=== PATIENT | female | born 1945 | race Caucasian/White ===

== ENCOUNTER → 2016-08-02 | Outpatient (CLI) | payer BC, OTHER ==
[~2016-08-02] VITALS: Ht 157.5 cm; Wt 59.0 kg
[~2016-08-02] MED LIST: ALLEGRA ALLERG180 MG PO; CELEBREX 200 M200 M1 PO; FLEXERIL PO; LIALDA1.2 GM PO; MINOCIN100 MG PO; MULTI VITAMIN1 EACH PO; PAMELOR50 MG PO; PROBIOTIC1 EAC1 PO; TOPROL XL100 MG PO; VITAMIN D3 PO
--- NOTE | ~2016-08-02 | HPC ---
[facility] [address] [place] [address] PAIN MANAGEMENT CONSULTATION Name: CISCO PAVON Room #: REG [facility] Alex#: [id number] Admission: 08/02/16 Attend Phys: Lux Potter DO Discharge: Date of : 45 Report #: [id number] THIS REPORT FOR: //name// CC: BARNEY Potter DATE OF SERVICE: 08/02/2016 HISTORY OF PRESENT ILLNESS: The patient is a very pleasant 70-year-old female seen in consultation at the request of Dr. Forrest Ghtora for evaluation of pain, right flank radiating to the groin. The patient has a long history, back in 1987, she had her first back surgery with Dr. Vasile Barron, I believe this was a right L5-S1 hemilaminectomy, was revised again later that year. Had ongoing pain issues, ultimately had an anterior-posterior fusion by Dr. Manuel Turcios, this was believed to be L4, L5 and S1. She did have an allogenic bone graft from the hip. Had suffered with ongoing pain, had another microdiscectomy above the fusion later in 1998 believed to be L3-L4. Ultimately in [place] she had another procedure at L2-L3 and L3-L4. I believe this was a posterior spinous process fixator. Again, the patient comes with a paucity of records regarding these back procedures. She subsequently had a [employer] spinal cord stimulator implanted in 2004. She had some efficacy with right radicular leg pain with the stimulator, though ultimately the stimulator about 3 years ago, and she has not had it revised. 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 Currently, does have a fairly large arthroplasty with a stem about mcfp up the femur and the inferior tibial piece was stemmed fairly deep into the tibia as well. One or two of the surgeries were complicated with a fracture of the femur. She has ultimately been maintained on a chronic antibiotic for prophylaxis (minocycline). Currently, the patient notes pain in the right flank and groin that has been present since May without antecedent trauma or overuse. Seems to be exacerbated with weightbearing or lifting her right leg. She has subjective weakness and paresthesia in the leg, but denies saddle anesthesia or bowel or bladder continence changes. Notes the pain rates quite high, anywhere from 8-10 on a 0-10 visual analog scale, described as steady, constant, burning, aching and pulling. REVIEW OF SYSTEMS: A complete review of systems is attached to the chart and gone over with the patient. [address] [address] PAIN MANAGEMENT CONSULTATION Name: LIBRADOCISCO AMBROSIO Room #: REG [facility] Alex#: [id number] Admission: 08/02/16 Attend Phys: Lux Potter DO Discharge: Date of : 45 Report #: [id number] She is , seen in the company of her who is supportive. A history of paroxysmal atrial tachycardia, currently on Toprol. Postmenopausal, uses a female hormone replacement. Some chronic colon issues for which she takes Lialda. Pamelor for some chronic insomnia. Celebrex 200 mg daily, Flexeril 10 mg at bedtime for chronic pain concerns. As noted earlier in the chief complaint, does take minocycline for chronic supression, status post multiple right knee arthroplasties and subsequent MSSA infection and sepsis. The patient does not work outside the home. Pain impact score averages fairly high about 40/70. PHYSICAL EXAMINATION: VITAL SIGNS: Reveals a 5 feet 2 inches, 130-pound female, BMI is 23.8 kg/m2. Blood pressure 153/80, pulse 78 and respirations 16. HEENT: Cranial nerves 2-12 are grossly intact. Pupils are equal and reactive to light and accommodation. Extraocular muscles are intact. NECK: Cervical range of motion is full. Thyroid is unremarkable. Upper extremity strength is symmetric. HEART: Regular and rhythmical with a subtle 1-2/6 systolic ejection murmur. LUNGS: Clear to auscultation. ABDOMEN: Benign. MUSCULOSKELETAL: Rises from chair using the armrests. There is a cane in her left hand, has an antalgic gait. Lumbar flexion is limited to 70 degrees. Tender from about L4 down to the sacrum. Right hip flexion strength is dramatically limited 2/5. Lower extremity extension on the right is 3/5 dorsiflexion is 2-3/5, plantar flexion is 3-4/5, left leg is much stronger about 4-5 to all muscle groups tested. Straight leg raise is negative, though right side does exacerbate some back pain. No true neural tensioning symptoms are noted. Patellar reflexes are absent symmetrically. Achilles reflex 0-1/4 and symmetric. Renetta test is negative. Diffuse tenderness across the low back. No discrete trigger points are noted. DATA: Diagnostic studies primarily aimed at ruling out right renal lithiasis, 07/25/2016, urinalysis is unremarkable. White count is within normal limits. Small eGFR is robust at 90.7. CT of the abdomen from 07/25/2016 notes no renal lithiasis or hydronephrosis. There is incidental mention made of lumbar spine hardware. ASSESSMENT: Symptomatic lumbar radiculopathy in a right L1-L2 pattern. RECOMMENDATIONS: I believe the patient will benefit from a right L1-L2 transforaminal epidural injection under fluoroscopy. We did discuss risks and benefits including the usual concerns for spinal cord trauma and increasing pain. Specifically from a spine angle, concerned about steroids decreasing immune response and exacerbating chronic underlying infection in the right knee, though the patient notes she has been followed diligently with her infectious [facility] [address] [place] [address] PAIN MANAGEMENT CONSULTATION Name: CISCO PAVON AMBROSIO Room #: REG [facility] Alex#: [id number] Admission: 08/02/16 Attend Phys: Lux Potter DO Discharge: Date of : 45 Report #: [id number] disease physician who notes her ESR has been quite low. If injection does not afford adequate relief, we would like to see a CT myelogram of the lumbar spine. MRI is contraindicated due to the spinal cord stimulator implant. Would, however, only consider a CT myelogram if the patient was open to surgery if pathology was noted. Thank your for allowing me to participate in the patient's care. We will seek authorization for a right L1-L2 transforaminal epidural injection under fluoroscopy. In the interim, we will have the patient query her infectious disease physician regarding his thoughts on steroid injection. If he acquiesces, I will be happy to move forward with interventional therapy as noted above. Again, thank you for allowing me to participate in the patient's care. I will keep you abreast of her progress. <ELECTRONICALLY SIGNED> By: Lux Potter DO 08/03/16 1308 [id number] Lux Potter DO /nt
[2016-08-02 08:51] VITALS: BP 153/80
== END ==
LOC: PAIN 07:16
DX: M54.16 Radiculopathy, lumbar region (principal); I47.1 Supraventricular tachycardia

== ENCOUNTER → 2016-08-09 | Outpatient (CLI) | payer BC, OTHER ==
[~2016-08-09] VITALS: Ht 157.5 cm; Wt 59.9 kg
--- NOTE | ~2016-08-09 | HPC ---
[facility] [place] [address] PAIN MANAGEMENT CONSULTATION Name: CISCO PAVON Room #: REG [facility] Alex#: [id number] Admission: 08/09/16 Attend Phys: Lux Potter DO Discharge: Date of : 45 Report #: [id number] THIS REPORT FOR: //name// CC: Zafar Potter DATE OF SERVICE: 08/09/2016 The patient is a pleasant 70-year-old female seen in consultation 08/02/2016 diagnosed with symptomatic lumbar radiculopathy status post decompressive laminectomy. Had right upper lumbar radicular symptoms. We talked about proceeding with a right L1-L2 transforaminal epidural injection today. I asked her to consult her Infectious Disease doctor. She had had chronic infections on that total knee arthroplasty and is on a suppressive antibiotic. Her orthopedist said that he was fine with her getting a steroid injection. The patient was taken to the fluoroscopy suite today. I did image her back. She came to us with a paucity of medical records. She has had anterior interbody fusions at L5-S1 and L4-L5. She has had pedicle screws bilateral at L2, L3 and L4. She does have a spinal cord stimulator which appears to be entering the epidural space at L2-L3. The generator is in the left gluteal pocket. PROCEDURE: Right L1-L2 transforaminal epidural injection under fluoroscopy. PROCEDURE NOTE: After both written and informed consent was obtained including risk of spinal cord damage, infection, increased pain and paralysis, the patient agreed to proceed. The patient was taken to the fluoroscopy suite, placed in a prone position with appropriate abdominal bolstering. After sterile prep with ChloraPrep and sterile drape, a skin wheal with 1% Xylocaine was raised. A 22 gauge 4-1/2 inch epidural Tuohy needle was inserted. From an oblique approach into the posterior-superior aspect of the right L1-L2 neural foramen with continuous pressure on the glass syringe plunger for loss of resistance. Glass syringe was filled with 2 cc of 0.1 Xylocaine. The glass loss of resistance syringe was removed. A low volume extension tubing was connected, negative aspiration was accomplished for cerebrospinal fluid or blood. 1 mL of Omnipaque was injected which showed spread both within the epidural space and laterally along the nerve root. This was followed with 80 mg of triamcinolone plus 1 mL of 1.5% preservative-free Xylocaine. Needle was partially withdrawn, 0.5 mL of Xylocaine was injected to clear the needle and the needle was removed. The area was cleansed, band-aid was applied. The patient was allowed to ambulate to the recovery room, discharged in good and stable condition. <ELECTRONICALLY SIGNED> By: Lux Potter DO 08/10/16 0837 [id number] 1038 Lux Potter DO /nt
[2016-08-09 08:27] VITALS: BP 136/81
== END | disposition home or self-care (01) ==
LOC: PAIN 07:09
DX: M54.16 Radiculopathy, lumbar region (principal)

== ENCOUNTER → 2016-09-06 | Outpatient (CLI) | payer OTHER, MEDICARE ==
[~2016-09-06] VITALS: Ht 157.5 cm; Wt 59.0 kg
--- NOTE | ~2016-09-06 | HPC ---
[facility] [place] [address] PAIN MANAGEMENT CONSULTATION Name: CISCO PAVON Room #: REG [facility] TraeJacques#: [id number] Admission: 09/06/16 Attend Phys: Lux Potter DO Discharge: Date of : 45 Report #: [id number] THIS REPORT FOR: //name// CC: Zafar Potter DATE OF SERVICE: 09/06/2016 The patient is a 70-year-old female last seen in pain clinic 08/09/2016. We did a right L1-L2 transforaminal epidural injection at that time. She has extensive fusion, posterior fusion at L2 through L4, anterior interbody fusion L4-L5 and L5-S1. She has a spinal cord stimulator in place. She had had significant problems with MRSA infection in the right knee. She returns to pain clinic today noting the injection afforded dramatic relief. Her right radicular pain has essentially gone. She is very pleased with this ongoing relief, which she states is 80% and ongoing. She does have a little mid back pain. She is unable to do gardening all weekend. She rates pain as 6 on a 0-10 visual analog scale. PHYSICAL EXAMINATION: Does show some tenderness at the superior aspect of the fusion. I suspect she does have some L1-L2 facet mediated pain here. Lumbar radicular symptoms are fairly nominal. A well-healed extensive scar in the right leg compatible with multiple problems from that right knee surgery, which was secondarily infected. The patient rises from chair using the armrest. Gait is modestly antalgic, though she is walking more upright, a little diffuse tenderness across the mid back area again compatible with L1-L2 mediated facet pain. ASSESSMENT: Lumbosacral spondylosis L1-L2 in a patient status post lumbar decompressive laminectomy with ongoing neuropathic pain. RECOMMENDATION: Discussion with the patient today about therapeutic options. I told her we can proceed with bilateral L1-L2 facet joint injections if back pain starts to interfere with function. We can repeat the right L1-L2 transforaminal epidural injection if radicular symptoms become problematic again. However, given her prior significant MRSA infection and ongoing antibiotic suppression, we will try and expose her to the least amount of steroid we can. We will see her simply on an as needed basis. Discharged in good and stable condition today. <ELECTRONICALLY SIGNED> By: Lux Potter DO 09/07/16 0948 [id number] Lux Potter DO /nt
[2016-09-06 10:37] VITALS: BP 131/68
== END | disposition home or self-care (01) ==
LOC: PAIN 06:56
DX: M43.26 Fusion of spine, lumbar region (principal); M47.897 Other spondylosis, lumbosacral region; G62.9 Polyneuropathy, unspecified

== ENCOUNTER → 2021-02-07 | Outpatient (CLI) | payer OTHER, MEDICARE | LOC: SJCVCIMAG 14:29 | PROVIDERS: ATTEND Internal Medicine | DX: I08.3 Combined rheumatic disorders of mitral, aortic and tricuspid valves (principal); R94.31 Abnormal electrocardiogram [ECG] [EKG] ==

== ENCOUNTER → 2021-02-08 | Outpatient (CLI) | payer OTHER, MEDICARE | LOC: SJCVC 13:37 | PROVIDERS: ATTEND Internal Medicine | DX: R94.31 Abnormal electrocardiogram [ECG] [EKG] (principal); D50.0 Iron deficiency anemia secondary to blood loss (chronic); E78.5 Hyperlipidemia, unspecified; M05.9 Rheumatoid arthritis with rheumatoid factor, unspecified; T84.59XS Infection and inflammatory reaction due to other internal joint prosthesis, sequela; Z96.659 Presence of unspecified artificial knee joint; Z88.5 Allergy status to narcotic agent; Z88.8 Allergy status to other drugs, medicaments and biological substances; Z79.899 Other long term (current) drug therapy ==